=== PATIENT | female | born 1980 | race Caucasian/White ===

== ENCOUNTER 2021-10-25 10:51 | Emergency (ER) | payer OTHER ==
[~2021-10-25] VITALS: Ht 160 cm; Wt 57.2 kg
[2021-10-25 11:04] VITALS: BP_SYST 113
--- NOTE | 2021-10-25 11:09 | NUR ---
BIBS WITH C/C OF BEING SENT OVER FOR EVALUATION FROM CLINIC FOR RIGHT NECK MASS. PT REPORTS PAIN 6/10, SOMETIMES 10/10. PAIN CAUSED PT TO SEEK MEDICAL ATTENTION. PT WENT TO CLINIC AND ADVISED TO COME TO ED. PT REPORTS PAIN STARTED 3 DAYS AGO WITH PAIN RADIATING DOWN RIGHT ARM. PT TOOK NAPROXEN LAST NIGHT FOR PAIN. NOTED PALPABLE MASS TO RIGHT UPPER LATERAL NECK AREA, TENDER TO TOUCH.
--- NOTE | 2021-10-25 11:12 | NUR ---
PLACED IN BED 5. REPORT GIVEN TO HARDY. DR. KAUR MADE AWARE.
--- NOTE | 2021-10-25 11:40 | NUR ---
MD KAUR AT BEDSIDE FOR MSE
[2021-10-25] MEDS ORDERED: KETOROLAC TROMETHAMINE 60 MG/2 ML VIAL IM ONE ×2 (11:45→12:06)
[2021-10-25] MEDS ORDERED: CYCL10TA24 PO (13:18)
[2021-10-25] MEDS ORDERED: NAPR-1172 PO (13:18)
[2021-10-25 13:26] VITALS: BP_SYST 113
--- NOTE | 2021-10-25 13:26 | NUR ---
Patient given written and verbal discharge instructions and verbalizes understanding. ER MD discussed with patient the results and treatment provided. Patient in stable condition. ID arm band removed. Opportunity for questions provided and answered. Medication side effect fact sheet provided.
== END 2021-10-25 13:26 | disposition home or self-care (01) ==
LOC: SED 10:51
DX: M54.12 Radiculopathy, cervical region (principal); M25.511 Pain in right shoulder; Z79.899 Other long term (current) drug therapy
CPT/HCPCS: 99284; 72040; 72072; 96372; J1885